=== PATIENT | male | born 1950 | race Caucasian/White ===

== ENCOUNTER 2021-03-01 15:14 | Outpatient (REF) | payer MEDICARE, OTHER, SELFPAY ==
[2021-03-01 16:07] LABS: Alanine Aminotransferase 20 U/L (0-40); Albumin Level 4.4 g/dL (3.5-5.0); Alkaline Phosphatase 51 U/L (39-117); Anion Gap 14 (12-20); Aspartate Amino Transferase 25 U/L (5-37); Blood Urea Nitrogen 14 mg/dL (9-16); Calcium 10.6 mg/dL (8.4-10.2); Carbon Dioxide 23 mmol/L (22-29); Chloride 107 mmol/L (96-108); Cholesterol 216 mg/dL; Estimated Glomerular Filt Rate 59; Glucose Random 103 mg/dL (60-115); HDL Cholesterol 50 mg/dL; LDL Cholesterol Calculated 143 mg/dl; Potassium 4.1 mmol/L (3.3-5.1); Sodium 140 mmol/L (135-145); Total Protein 7.1 g/dL (6.5-8.0); Triglycerides 119 mg/dL
== END 2021-03-01 15:15 | disposition home or self-care (01) ==
LOC: HO.LAB 15:14
PROVIDERS: PCP Internal Medicine; Visit Provider Internal Medicine
DX: E78.5 Hyperlipidemia, unspecified (principal); I10 Essential (primary) hypertension; F52.21 Male erectile disorder
CPT/HCPCS: 36415; 80053; 80061